=== PATIENT | male | born 1980 ===

== ENCOUNTER 2017-07-16 06:04 | Day surgery (SDC) | payer OTHER ==
[~2017-07-16] VITALS: Ht 172.7 cm; Wt 102.1 kg
[2017-07-16] VITALS (11 sets, daily range): BP systolic 105–121; BP diastolic 60–81
[~2017-07-16 06:04] MED LIST: NKM; ceFAZolin 1gm in D5W 55ml IVP ONE; celeBREX 100mg Cap **SURGERY PATIENTS ONLY ORAL ONE; oxyCONTIN 20mg tab ORAL ONE
[2017-07-16] MEDS ORDERED: Kenalog-40 1ml Vial ONE (07:08)
[2017-07-16] MEDS ORDERED: EPINEPHrine 1mg/1ml Amp ONE (07:08)
[2017-07-16] MEDS ORDERED: Ketorolac 30mg Inj ONE ×2 (07:08→08:47)
[2017-07-16] MEDS ORDERED: Morphine Sulfate PF 0 ML ONE (07:08)
[2017-07-16] MEDS ORDERED: Bupivacaine 0.25% Inj 30ml INJ ONE ×3 (07:09→07:24)
[2017-07-16] MEDS ORDERED: Metoclopramide 10mg/2ml Inj ONE (07:14)
[2017-07-16] MEDS ORDERED: Lidocaine 1% MPF 10mg/ml 5ml ONE (07:14)
[2017-07-16] MEDS ORDERED: Propofol 200mg/20ml IV ONE (07:14)
[2017-07-16] MEDS ORDERED: fentaNYL 100 mcg/2 mL IV ONE (07:17)
[2017-07-16] MEDS ORDERED: Midazolam 2mg/2ml Inj ONE (07:17)
[2017-07-16] MEDS ORDERED: Zemuron 50mg/5ml Inj IV ONE (07:24)
[2017-07-16] MEDS ORDERED: LR 1000ml ONE (07:30)
[2017-07-16] MEDS ORDERED: Glycopyrrolate 0.2mg/ml 1ml Vial ONE (07:30)
[2017-07-16] MEDS ORDERED: Sterile Water Irrig 1000ml IRRIG ONE (07:30)
[2017-07-16] MEDS ORDERED: NS Irrig 1000ml ONE (07:30)
[2017-07-16] MEDS ORDERED: NS Irrig 4000ml IRRIG ONE (07:30)
--- NOTE | 2017-07-16 07:40 | Operative Note - PDOC ---
Operative Note Operative Note Pre-op Diagnosis: left shoulder labral/slap tear Procedure: see op report Post-op Diagnosis: same as pre-op plus Operative Findings: consistent w/pre-op dx studies Anesthesia: regional Specimen: none Complications: none Condition: stable Estimated Blood Loss: none Implant(s) used?: Yes Cb Anderson MD July 16, 2017 07:40
--- NOTE | 2017-07-16 07:40 | Pre-Procedure Note/Attestation ---
Pre-Procedure Note/Attestation Complete Prior to Procedure Planned Procedure: left Procedure Narrative: shoulder arthroscopy labral repair Indications for Procedure Pre-Operative Diagnosis: left shoulder labral/slap tear Attestation I attest that I discussed the nature of the procedure; its benefits; risks and complications; and alternatives (and the risks and benefits of such alternatives ), prior to the procedure, with the patient (or the patient's legal medicare sales representative). I attest that, if there was a reasonable possibility of needing a blood transfusion, the patient (or the patient's legal medicare sales representative) was given the [facility] standardized written summary, pursuant to the Tushar Latrice Blood Safety Act ([place] Health and Safety Code # 1645, as amended). I attest that I re-evaluated the patient just prior to the surgery and that there has been no change in the patient's H&P, except as documented below: Cb Anderson MD July 16, 2017 07:39
[2017-07-16] MEDS ORDERED: fentaNYL 100 mcg/2 mL IV PRN (08:30)
[2017-07-16] MEDS ORDERED: Ropivacaine 5mg/ml Vial 30ml INJ ONE (08:30)
[2017-07-16] MEDS ORDERED: DiphenhydrAMINE 50mg/ml Inj IVP PRN (08:30)
[2017-07-16] MEDS ORDERED: Metoclopramide 10mg/2ml Inj IVP PRN (08:30)
--- NOTE | 2017-07-16 08:30 | Anethesia Preoperative Eval ---
Anesthesia Pre-op PMH/ROS General Date of Evaluation: July 16, 2017 Time of Evaluation: 07:30 Anesthesiologist: alex ASA Score: ASA 2 Mallampati Score Class I : Soft palate, uvula, fauces, pillars visible Class II: Soft palate, uvula, fauces visible Class III: Soft palate, base of uvula visible Class IV: Only hard plate visible Mallampati Classification: Class II Surgeon: racheal Diagnosis: SLAP tear Surgical Procedure: left shoulder arthroscopy Anesthesia History: none Family History: no anesthesia problems Allergies: Coded Allergies: No Known Allergies (Unverified , 07/15/17) Medications: see eMAR Past Medical History Cardiovascular: Denies: HTN, CAD, [place], valve dz, arrhythmia, other Pulmonary: Denies: asthma, COPD, DEREJE, other Gastrointestinal/Genitourinary: Denies: GERD, CRI, ESRD, other Neurologic/Psychiatric: Denies: dementia, CVA, depression/anxiety, TIA, other Endocrine: Denies: DM, hypothyroidism, steroids, other HEENT: Denies: cataract (L), cataract (R), glaucoma, [place] (L), [place] (R), other Hematology/Immune: Denies: anemia, DVT, bleeding disorder, other Musculoskeletal/Integumentary: Reports: other - chronic pain Other: obesity PSxH Narrative: appendectomy Anesthesia Pre-op Phys. Exam Physician Exam Last Vital Signs Date Time Temp Pulse Resp B/P (MAP) Pulse Ox O2 Delivery O2 Flow Rate FiO2 07/16/17 06:42 98.6 86 20 120/75 100 Room Air 98.6 Constitutional: NAD Neurologic: CN 2-12 intact Cardiovascular: RRR Respiratory: CTA Gastrointestinal: S/NT/ND Airway Exam Mallampati Classification 3 Mallampati Score: Class II Neck: thick TMD: 1fb ROM: full Dentures: no upper, no lower Anesthesia Pre-op A/P Studies Pre-op Studies: EKG - sr Risk Assessment & Plan Plan: general/ISB Status Change Before Surgery: No Pre-Antibiotics Drug: ancef Given Within 1 Hr of Incision: Yes Time Given: 07:40 ADIEL SOMMER CRNA July 16, 2017 08:30
[2017-07-16] MEDS ORDERED: Acetaminophen (Non formulary) 100 ML IV ONE (09:00)
--- NOTE | 2017-07-16 09:58 | Immediate Post-Op Evaluation ---
Immediate Post-Op Evalulation Immediate Post-Op Evalulation Procedure: left shoulder arthroscopy with SLAP repair Date of Evaluation: July 16, 2017 Time of Evaluation: 09:57 IV Fluids: 600 Blood Pressure Systolic: 116 Blood Pressure Diastolic: 77 Pulse Rate: 79 Respiratory Rate: 14 O2 Sat by Pulse Oximetry: 98 Temperature (Fahrenheit): 97.9 Pain Score (1-10): 0 Nausea: No Vomiting: No Complications none Patient Status: awake, reacts, patent Hydration Status: adequate Drug: ancef Given Within 1 Hr of Incision: Yes - 0740 Time Given: 07:40 ADIEL SOMMER CRNA July 16, 2017 09:58
--- NOTE | 2017-07-16 11:17 | Operative Note - Dictated ---
DATE OF OPERATION: 07/16/2017 PREOPERATIVE DIAGNOSES: 1. Left shoulder SLAP tear. 2. Impingement syndrome. PROCEDURE: 1. Left shoulder arthroscopy and extensive intra-articular debridement. 2. Left shoulder superior labral repair/SLAP repair. 3. Left subacromial decompression and bursectomy. SURGEON: Cb Anderson M.D. ANESTHESIA: Interscalene with general. INDICATION FOR PROCEDURE: The patient is a pleasant gentleman, who has had significant left shoulder pain. He failed conservative treatment. He had MRI, which showed a significant superior labral tear extending into the attachment of the biceps tendon. The patient failed conservative treatment and elected to undergo left shoulder arthroscopic SLAP repair. Risks, limitations, expectations, and complications of procedure were discussed in detail. All questions were addressed. DESCRIPTION OF PROCEDURE: After informed consent was obtained, the patient was brought to the operating room and placed under interscalene with general anesthesia. The patient was then carefully placed in the beach-chair position. Left shoulder was prepped and draped in sterile manner. Time-out was performed. Posterolateral stab incision was then made. Trocar was introduced in the glenohumeral joint. There was significant displacement of the superior labrum. An anterior portal was established. The debridement of the tear of the superior labrum was performed. Once the tear was debrided and better defined, it seemed like the superior labrum was subluxing into the joint. The superior aspect of glenoid was debrided of soft tissue. Bois D Arc was then placed and arthroscopic knot was then placed to secure the superior labrum back to the glenoid. Once that was done, the camera was placed in the rotator interval and the posterior labrum was assessed along the posterior margin. The labrum was intact. At this point, the camera was placed in the subacromial space. There was hypertrophic bursal tissue and soft tissue. Complete bursectomy was performed. Acromioplasty was completed from lateral to medial, and completed posterior to anterior. The bursal side of the rotator cuff was intact. Instruments were removed. Portal sites were closed with 3-0 Monocryl sutures. Steri-Strips and sterile dry dressing was applied. The patient was awoken and taken to recovery room with stable vital signs. ESTIMATED BLOOD LOSS: None. COMPLICATIONS: None. SPECIMENS: None. IMPLANTS: Include 1 [employer] JuggerKnot anchor. Cb Anderson M.D. DR: Jeison JOB#: [id number] CC: SABINE
[2017-07-16] MEDS ORDERED: Neostigmine 1mg/ml 10ml Inj ONE (12:00)
--- NOTE | 2017-07-16 12:33 | 48 Hour Post Anesthesia Eval ---
Post Anesthesia Evaluation Procedure: left shoulder arthroscopy with SLAP repair Date of Evaluation: July 16, 2017 Time of Evaluation: 12:33 Blood Pressure Systolic: 115 0: 60 Pulse Rate: 70 Respiratory Rate: 14 O2 Sat by Pulse Oximetry: 99 Airway: patent Nausea: No Vomiting: No Pain Intensity: 0 Hydration Status: adequate Cardiopulmonary Status: stable Mental Status/LOC: patient returned to baseline Follow-up Care/Observations: na Post-Anesthesia Complications: none Follow-up care needed: N/A ADIEL SOMMER CRNA July 16, 2017 12:33
[2017-07-16] MEDS ORDERED: Norco 5mg/325mg tab ORAL PRN (16:01)
[2017-07-16] MEDS ORDERED: D5 1/2NS 1,000 ML IV SCH (16:01)
[2017-07-16] MEDS ORDERED: Tylenol #3 tab (300mg/30mg) ORAL PRN (16:01)
== END 2017-07-16 13:50 | disposition home or self-care (01) ==
LOC: SUR 06:04
DX: S43.432A Superior glenoid labrum lesion of left shoulder, initial encounter (principal); M75.42 Impingement syndrome of left shoulder; X58.XXXA Exposure to other specified factors, initial encounter; Y93.9 Activity, unspecified; Y92.9 Unspecified place or not applicable; Z90.89 Acquired absence of other organs
CPT/HCPCS: 29807; J0171; J0690; J1885; J2250; J2405; J2704; J2710; J2765; J2795; J3010; J3490; J7120; 94003; 94150; C1713